=== PATIENT | male | born 1970 | race Caucasian/White ===

== ENCOUNTER 2020-09-17 01:27 | Emergency (ER) | payer OTHER ==
[2020-09-17] MEDS ORDERED: AZITHROMYCIN500 M2 PO (02:08)
[2020-09-17] MEDS ORDERED: AUGMENTIN 875875 MG PO (02:08)
[2020-09-17] MEDS ORDERED: LISINOPRIL10 M1 PO (02:09)
[2020-09-17] MEDS ORDERED: BENZONATATE200 MG PO (02:09)
[2020-09-17] MEDS ORDERED: DULOXETINE HCL60 MG PO (02:09)
[2020-09-17 02:38] LABS: BASO % 0.3 % (0.0-1.0); HEMATOCRIT 47.2 % (42.0-52.0); LYMPH # 1.2 10*3/uL (1.3-4.4); LYMPH % 32.5 % (27.0-41.0); MEAN CELL VOLUME 89.1 fl (80.0-94.0); MEAN CORPUSCULAR HGB 29.6 pg (27.0-31.0); MEAN CORPUSCULAR HGB CONC 33.3 g/dl (33.0-37.0); MEAN PLATELET VOLUME 9.4 fl (9.6-12.3); MONO # 0.3 10*3/uL (0.1-1.0); MONO % 9.6 % (3.0-9.0); NEUT % 57.3 % (47.0-73.0); PLATELET COUNT AUTOMATED 161 10*3/uL (130-400); RED CELL DISTRI WIDTH 12.1 % (0-14.5); WHITE BLOOD COUNT 3.5 10*3/uL (4.8-10.8)
[2020-09-17 02:53] LABS: ALBUMIN 3.7 gm/dl (3.1-4.5); ALKALINE PHOSPHATASE 77 U/L (45-117); BUN 14 mg/dl (7-24); CHLORIDE 103 mmol/L (98-107); CREATININE 1.08 mg/dL (0.70-1.30); POTASSIUM 3.3 mmol/L (3.5-5.1); SGOT/AST 26 IU/L (3-35); SGPT/ALT 50 U/L (12-78); SODIUM 137 mmol/L (136-145); TOTAL PROTEIN 6.9 gm/dL (6.4-8.2)
== END 2020-09-17 03:05 | disposition home or self-care (01) ==
LOC: ED 01:27
PROVIDERS: Emergency Medicine
DX: U07.1 COVID-19 (principal); J18.9 Pneumonia, unspecified organism; Z79.899 Other long term (current) drug therapy